=== PATIENT | female | born 1955 | race Caucasian/White ===

== ENCOUNTER 2017-08-01 10:58 | Emergency (ER) | payer OTHER ==
[~2017-08-01] VITALS: Ht 162.6 cm; Wt 54.9 kg
[2017-08-01 11:05] VITALS: Ht 162.6 cm; Wt 54.9 kg
[2017-08-01 12:13] VITALS: BP 127/88
== END 2017-08-01 12:10 | disposition short-term general hospital (02) ==
LOC: ED 10:58
DX: I61.5 Nontraumatic intracerebral hemorrhage, intraventricular (principal); Z90.49 Acquired absence of other specified parts of digestive tract; E03.9 Hypothyroidism, unspecified
CPT/HCPCS: J2270; J2405

== ENCOUNTER 2018-01-08 18:04 | Emergency (ER) | payer OTHER ==
[~2018-01-08] VITALS: Ht 180.3 cm; Wt 52.2 kg
[2018-01-08 18:17] VITALS: Ht 180.3 cm; Wt 52.2 kg
[2018-01-08 19:47] LABS: PLATELET COUNT 299 x10^3mcL (130-400)
[2018-01-08 20:02] LABS: CALCIUM 8.8 mg/dL (8.5-10.1); CHLORIDE SERUM 107 mmol/L (98-107); CREATININE SERUM 0.8 mg/dL (0.6-1.0); GFR1 > 60 mL/min; GLUCOSE SERUM 132 mg/dL (74-106); POTASSIUM SERUM 3.8 mmol/L (3.5-5.1); SODIUM SERUM 141 mmol/L (136-145)
[2018-01-08 20:07] LABS: ALBUMIN 3.9 g/dL (3.4-5.0); ALKALINE PHOSPHATASE 86 U/L (46-116); ALT/SGPT 20 U/L (14-59); AST/SGOT 17 U/L (15-37); TOTAL PROTEIN, SERUM 8.1 g/dL (6.4-8.2)
[2018-01-08 20:16] LABS: BAND NEUTROPHIL 10 % (0-10); BASOPHIL 0 % (0-2); METAMYELOCTE 1 % (0-2); MONOCYTE 1 % (0-7); MYELOCYTE 1 % (0-2); PLATELET MORPHOLOGY PLATELETS NORMAL; SEGMENTED NEUTROPHILS 75 % (37-75); rbc morphology (normal/abnorm) NORMAL (NORMAL)
[2018-01-08 20:39] VITALS: BP 139/100
== END 2018-01-08 21:00 | disposition home or self-care (01) ==
LOC: ED 18:04
PROVIDERS: Emergency Medicine
DX: N13.2 Hydronephrosis with renal and ureteral calculous obstruction (principal); E03.9 Hypothyroidism, unspecified; Z90.49 Acquired absence of other specified parts of digestive tract; Z90.89 Acquired absence of other organs
CPT/HCPCS: J1885; J7030

== ENCOUNTER 2018-12-17 18:14 | Emergency (ER) | payer OTHER ==
[~2018-12-17] VITALS: Ht 149.9 cm; Wt 48.1 kg
[2018-12-17 18:20] VITALS: Ht 149.9 cm; Wt 48.1 kg
[2018-12-17 19:11] LABS: microscopic required? NO
[2018-12-17 19:12] LABS: BASOPHIL % 0.5 % (0-2); PLATELET COUNT 297 x10^3mcL (130-400); RED CELL DISTRIBUTION WIDTH 13.8 % (11.5-14.5)
[2018-12-17 19:19] LABS: urine erythrocyte NEGATIVE (NEGATIVE)
[2018-12-17 19:20] LABS: CALCIUM 8.2 mg/dL (8.5-10.1); CARBON DIOXIDE 23.6 mmol/L (21-32); CHLORIDE SERUM 109 mmol/L (98-107); CREATININE SERUM 0.7 mg/dL (0.6-1.0); GFR1 > 60 mL/min; GLUCOSE SERUM 99 mg/dL (74-106); SODIUM SERUM 142 mmol/L (136-145)
[2018-12-17 19:24] LABS: ALBUMIN 3.4 g/dL (3.4-5.0); ALKALINE PHOSPHATASE 78 U/L (46-116); ALT/SGPT 21 U/L (14-59); AST/SGOT 13 U/L (15-37); BILIRUBIN TOTAL 0.3 mg/dL (0.20-1.00); TOTAL PROTEIN, SERUM 7.3 g/dL (6.4-8.2)
[2018-12-17 19:28] LABS: AMPHETAMINE QUAL UR NONE DETECTED (See below)
[2018-12-17 22:30] VITALS: BP 123/49
== END 2018-12-17 22:30 | disposition home or self-care (01) ==
LOC: ED 18:14
PROVIDERS: Student in an Organized Health Care Education/Training Program
DX: B34.9 Viral infection, unspecified (principal); R42 Dizziness and giddiness; R06.02 Shortness of breath; E03.9 Hypothyroidism, unspecified; Z90.49 Acquired absence of other specified parts of digestive tract
CPT/HCPCS: 36415; 83880; J8597; Q0092